=== PATIENT | female | born 1995 | race Two or more races ===

== ENCOUNTER 2022-09-23 13:34 | Outpatient (CLI) | payer OTHER | END 2022-09-23 15:00 | disposition home or self-care (01) | LOC: PRENATAL 13:34 | PROVIDERS: ATTEND Obstetrics & Gynecology Maternal & Fetal Medicine | DX: O36.80X0 Pregnancy with inconclusive fetal viability, not applicable or unspecified (principal); O10.019 Pre-existing essential hypertension complicating pregnancy, unspecified trimester; O99.280 Endocrine, nutritional and metabolic diseases complicating pregnancy, unspecified trimester; Z3A.14 14 weeks gestation of pregnancy ==

== ENCOUNTER 2022-11-09 11:25 | Outpatient (CLI) | payer OTHER ==
[2022-11-09] MEDS ORDERED: SYNTHROID50 MCG PO (13:13)
== END 2022-11-09 16:15 | disposition home or self-care (01) ==
LOC: PRENATAL 11:25
PROVIDERS: ATTEND Obstetrics & Gynecology Maternal & Fetal Medicine
DX: O35.3XX0 Maternal care for (suspected) damage to fetus from viral disease in mother, not applicable or unspecified (principal); O10.019 Pre-existing essential hypertension complicating pregnancy, unspecified trimester; O99.280 Endocrine, nutritional and metabolic diseases complicating pregnancy, unspecified trimester; O44.00 Complete placenta previa NOS or without hemorrhage, unspecified trimester; Z3A.21 21 weeks gestation of pregnancy

== ENCOUNTER → 2023-01-26 13:19 | Outpatient (CLI) | payer OTHER ==
[~2023-01-26 13:19] MED LIST: SYNTHROID50 MCG PO
== END | disposition home or self-care (01) ==
LOC: PRENATAL 13:19
PROVIDERS: ATTEND Obstetrics & Gynecology Maternal & Fetal Medicine
DX: O26.849 Uterine size-date discrepancy, unspecified trimester (principal); O10.019 Pre-existing essential hypertension complicating pregnancy, unspecified trimester; O99.280 Endocrine, nutritional and metabolic diseases complicating pregnancy, unspecified trimester; Z3A.32 32 weeks gestation of pregnancy

== ENCOUNTER 2023-03-01 10:24 | Outpatient (CLI) | payer OTHER | END 2023-03-01 10:30 | disposition home or self-care (01) | LOC: PRENATAL 10:24 | PROVIDERS: ATTEND Obstetrics & Gynecology Maternal & Fetal Medicine | DX: O26.849 Uterine size-date discrepancy, unspecified trimester (principal); O10.019 Pre-existing essential hypertension complicating pregnancy, unspecified trimester; O99.210 Obesity complicating pregnancy, unspecified trimester; O99.280 Endocrine, nutritional and metabolic diseases complicating pregnancy, unspecified trimester; Z3A.37 37 weeks gestation of pregnancy ==

== ENCOUNTER 2023-03-04 09:18 | Inpatient (IN) | payer OTHER ==
[~2023-03-04] VITALS: Ht 165.1 cm; Wt 128.8 kg
[2023-03-04] MEDS ORDERED: ECOTRIN81 MG (10:24)
[2023-03-04] MEDS ORDERED: LABETALOL 11 MG/1 ML IV (10:24)
[2023-03-04 10:32] LABS: HEMATOCRIT 34.7 % (36.0-45.00); HEMOGLOBIN 11.8 g/dL (12.0-15.00); MEAN CELL VOLUME 85.5 fL (80.00-100.00); MEAN CORPUSCULAR HEMOGLOBIN 29.2 pg (27.00-32.0); MEAN CORPUSCULAR HGB CONC 34.1 g/dl (32.0-36.0); PLATELET COUNT 242 K/uL (150-450); RED BLOOD COUNT 4.06 M/uL (4.00-6.00); RED CELL DISTRIBUTION WIDTH 14.6 % (11.5-14.5)
[2023-03-04 10:38] LABS: URINE APPEARANCE Clear; URINE BILIRRUBIN Negative (NEGATIVE); URINE BLOOD Negative; URINE COLOR Yellow; URINE GLUCOSE Negative (NEGATIVE); URINE LEUKOCYTE Negative; URINE NITRATE Negative; URINE PROTEIN Negative (NEGATIVE); URINE UROBILINOGEN 0.2 E.U./dl
[2023-03-04 10:40] LABS: URINE BACTERIA 600.9 uL (0.0-1933); URINE EPITHELIAL CELLS 27.8 uL (0.0-38.8); URINE WBC 8.9 uL (0.0-23.2)
[2023-03-04 11:02] LABS: URINE RBC 0.7 uL (0.0-20.8)
[2023-03-04 11:08] LABS: INR 0.94; PARTIAL THROMBOPLASTIN TIME 24.9 SECONDS (22.0-34.0); PROTHROMBIN TIME 9.9 SECONDS (9.0-11.5)
[2023-03-09] MEDS ORDERED: PRENATAL TABLE1 EAC1 PO (09:20)
[2023-03-09 19:07] LABS: ABG PH 7.242 (7.35-7.45); ABG pCO2 37.6 mmHg (35-45)
[2023-03-09 19:08] LABS: ABG PO2 46.6 mmHg (80-100); BASE EXCESS -10.8 mmol/l; BICARBONATE 15.8 mmol/l (23-25); SaO2 71.9 %; o2 21 %
[2023-03-09 21:36] LABS: HEMATOCRIT 37.6 % (36.0-45.00); HEMOGLOBIN 12.7 g/dL (12.0-15.00); MEAN CELL VOLUME 85.4 fL (80.00-100.00); MEAN CORPUSCULAR HEMOGLOBIN 28.8 pg (27.00-32.0); MEAN CORPUSCULAR HGB CONC 33.8 g/dl (32.0-36.0); PLATELET COUNT 225 K/uL (150-450); RED CELL DISTRIBUTION WIDTH 14.8 % (11.5-14.5)
== END 2023-03-11 17:00 | disposition home or self-care (01) | DRG 785 ==
LOC: OB/GYN 03-08 07:00 → O/R 03-09 05:45 → OB/GYN 03-09 05:45
PROVIDERS: ADMIT Obstetrics & Gynecology; ATTEND Obstetrics & Gynecology
PROC: 0UB70ZZ Excision of Bilateral Fallopian Tubes, Open Approach (ICD-10-PCS; 2023-03-09)
PROC: 4A1HXCZ Monitoring of Products of Conception, Cardiac Rate, External Approach (ICD-10-PCS; 2023-03-09)
PROC: 10D00Z1 Extraction of Products of Conception, Low, Open Approach (ICD-10-PCS; principal; 2023-03-09 12:45)
DX: O34.211 Maternal care for low transverse scar from previous cesarean delivery (principal); Z30.2 Encounter for sterilization; Z3A.38 38 weeks gestation of pregnancy; Z37.0 Single live birth; Z20.822 Contact with and (suspected) exposure to COVID-19